=== PATIENT | female | born 1990 | race Hispanic/Latino ===

== ENCOUNTER 2018-01-03 23:08 | Inpatient (IN) | payer MEDICAID, OTHER ==
[~2018-01-03] VITALS: Ht 160 cm; Wt 77.1 kg
[2018-01-03 23:58] LABS: APPEARANCE,URINE Clear (CLEAR); BILIRUBIN,URINE Negative (NEGATIVE); COLOR,URINE Yellow (YELLOW); GLUCOSE, URINE (UA) Negative (NEGATIVE); KETONES,URINE Negative (NEGATIVE); LEUKOCYTE ESTERASE ,URINE Moderate (NEGATIVE); NITRATE,URINE Negative (NEGATIVE); OCCULT BLOOD,URINE Trace (NEGATIVE); PH,URINE 5.5 (5.0-8.0); PROTEIN,URINE Negative (NEGATIVE)
[2018-01-04] MEDS ORDERED: LACTATED RINGERS 1000ML 1,000 ML IV PRN (00:02)
[2018-01-04 00:03] LABS: BACTERIA,URINE None Seen /HPF (None Seen); MUCUS,URINE Rare LPF (None Seen); RBC,URINE 0-1 /HPF (0-1); SQUAMOUS EPITHELIAL CELL,UR Few /HPF (0-2)
[2018-01-04] MEDS ORDERED: OXYTOCIN 10 USP UNITS/ML 20 UNIT in LACTATED RINGERS 1000ML 1,000 ML IV SCH (00:15)
[2018-01-04] MEDS ORDERED: LACTATED RINGERS 500 ML 500 ML IV PRN (00:15)
[2018-01-04] MEDS ORDERED: MEPERIDINE-PF 50 MG/ML SYG IVP ONE (00:15)
[2018-01-04] MEDS ORDERED: NALOXONE HCL 0.4 MG/1 ML ML IV PRN (00:15)
[2018-01-04] MEDS ORDERED: EPHEDRINE SULFATE 50 MG/ML AMPULE IVP PRN (00:15)
[2018-01-04] MEDS ORDERED: PROMETHAZINE HCL 25 MG/ML 1ML AMPULE IM SCH (00:15)
[2018-01-04 01:19] LABS: HEMATOCRIT 30.1 % (36-48); MEAN CORPUSCULAR HEMOGLOBIN 29.4 pg (27.0-33.0); MEAN CORPUSCULAR VOLUME 86.4 fL (79-99); NUCLEATED RED BLOOD CELLS 0.1 % (0.0-0.19); PLATELET COUNT (AUTO) 272 K/uL (130-400); RED BLOOD CELL COUNT(AUTO) 3.48 MIL/uL (4.00-5.50); RED CELL DISTRIBUTION WIDTH 15.8 % (11.0-15.5); WHITE BLOOD COUNT (AUTO) 10.7 K/uL (4.8-10.8)
[2018-01-04] MEDS ORDERED: OXYTOCIN 10 USP UNITS/ML ONE ×2 (03:57→13:34)
[2018-01-04] MEDS ORDERED: WITCH HAZEL 1 PAD TP PRN (13:15)
[2018-01-04] MEDS ORDERED: BENZOCAINE/LANOLIN/ALOE VERA 60 ML AEROSOL TP PRN (13:15)
[2018-01-04] MEDS ORDERED: ACETAMINOPHEN-CODEINE 300/30MG TAB PO PRN (13:15)
[2018-01-04] MEDS ORDERED: MEASLES/MUMPS/RUBELLA VACCINE, LIVE 0.5 ML/VIAL SQ PRN (13:15)
[2018-01-04] MEDS ORDERED: LANOLIN 30GM OINTMENT TP PRN (13:15)
[2018-01-04] MEDS ORDERED: ACETAMINOPHEN 325 MG TAB PO PRN (13:15)
[2018-01-04] MEDS ORDERED: DIPH,PERTUSS(ACELL),TET VAC/PF 0.5 ML VIAL IM PRN (13:15)
[2018-01-04] MEDS ORDERED: HYDROCODONE/ACETAMINOPHEN 5/325 MG TAB PO PRN (13:15)
[2018-01-04] MEDS: IBUPROFEN 800 MG TAB PO PRN (15:02)
[2018-01-04 15:17] VITALS: BP 121/61
[2018-01-04] MEDS ORDERED: PNV1TABL17 PO (15:42)
[2018-01-04 19:10] VITALS: BP 113/61
[2018-01-04] MEDS: DOCUSATE SODIUM 100 MG CAP PO SCH (21:06)
[2018-01-04 23:31] VITALS: BP 116/72
[2018-01-05] MEDS: IBUPROFEN 800 MG TAB PO PRN ×2 (00:44→08:38)
[2018-01-05 03:29] VITALS: BP 114/66
[2018-01-05 06:46] LABS: HEMATOCRIT 29.6 % (36-48); MEAN CORPUSCULAR HEMOGLOBIN 28.4 pg (27.0-33.0); MEAN CORPUSCULAR VOLUME 86.2 fL (79-99); PLATELET COUNT (AUTO) 260 K/uL (130-400); RED BLOOD CELL COUNT(AUTO) 3.44 MIL/uL (4.00-5.50); RED CELL DISTRIBUTION WIDTH 15.8 % (11.0-15.5); WHITE BLOOD COUNT (AUTO) 13.9 K/uL (4.8-10.8)
[2018-01-05 07:16] VITALS: BP 116/71
[2018-01-05 08:06] LABS: HEPATITIS Bs ANTIGEN SCREEN P Negative (Negative)
[2018-01-05] MEDS: DOCUSATE SODIUM 100 MG CAP PO SCH (08:37)
[2018-01-05 11:08] VITALS: BP 117/68
== END 2018-01-05 14:55 | disposition home or self-care (01) | DRG 560 ==
LOC: EDH 23:08 → OBSVTOIN 23:09 → LDH 23:09 → WSH 01-04 15:15
PROVIDERS: ADMIT Obstetrics & Gynecology; ATTEND Obstetrics & Gynecology
PROC: 10E0XZZ Delivery of Products of Conception, External Approach (ICD-10-PCS; principal; 2018-01-04)
PROC: 3E0234Z Introduction of Serum, Toxoid and Vaccine into Muscle, Percutaneous Approach (ICD-10-PCS; 2018-01-04)
PROC: 3E0134Z Introduction of Serum, Toxoid and Vaccine into Subcutaneous Tissue, Percutaneous Approach (ICD-10-PCS; 2018-01-04)
PROC: 3E033VJ Introduction of Other Hormone into Peripheral Vein, Percutaneous Approach (ICD-10-PCS; 2018-01-04)
PROC: 10907ZC Drainage of Amniotic Fluid, Therapeutic from Products of Conception, Via Natural or Artificial Opening (ICD-10-PCS; 2018-01-04)
PROC: 3E0R3BZ Introduction of Anesthetic Agent into Spinal Canal, Percutaneous Approach (ICD-10-PCS; 2018-01-04)
PROC: 00HU33Z Insertion of Infusion Device into Spinal Canal, Percutaneous Approach (ICD-10-PCS; 2018-01-04)
PROC: 3E0334Z Introduction of Serum, Toxoid and Vaccine into Peripheral Vein, Percutaneous Approach (ICD-10-PCS; 2018-01-05)
DX: O80 Encounter for full-term uncomplicated delivery (principal); Z23 Encounter for immunization; Z37.0 Single live birth; Z3A.40 40 weeks gestation of pregnancy
CPT/HCPCS: 36415; 81001; 83033; 85027; 86592; 86850; 86900; 86901; 87340; 90707; 90715; A4314; J2590; J2791; J7120

== ENCOUNTER 2021-12-02 14:46 | Emergency (ER) | payer MEDICAID ==
[~2021-12-02] VITALS: Ht 160 cm; Wt 72.6 kg
[~2021-12-02 14:46] MED LIST: PNV1TABL17 PO
[2021-12-02 15:12] VITALS: BP 107/66
[2021-12-02] MEDS: LIDOCAINE HCL MPF 1% 5ML VIAL IM SCH (16:14)
[2021-12-02] MEDS ORDERED: BACI30OI6 TP (16:46)
== END 2021-12-02 16:54 | disposition home or self-care (01) ==
LOC: EDH 14:46
DX: S51.812A Laceration without foreign body of left forearm, initial encounter (principal); X58.XXXA Exposure to other specified factors, initial encounter; Y93.89 Activity, other specified; Y92.89 Other specified places as the place of occurrence of the external cause; Y99.8 Other external cause status
CPT/HCPCS: 12001; 99282; J3490